=== PATIENT | male | born 2000 | race Caucasian/White ===

== ENCOUNTER 2021-11-29 01:38 | Emergency (ER) | payer OTHER ==
[2021-11-29] MEDS ORDERED: Bacitracin 1 PK ONE (02:08)
[2021-11-29] MEDS ORDERED: Bacitracin 1 PK TOP SCH (02:30)
== END 2021-11-29 02:25 | disposition home or self-care (01) ==
LOC: ERS 01:38
DX: T23.241A Burn of second degree of multiple right fingers (nail), including thumb, initial encounter (principal); Z87.891 Personal history of nicotine dependence; X08.8XXA Exposure to other specified smoke, fire and flames, initial encounter
CPT/HCPCS: 99283